=== PATIENT | female | born 1995 | race Caucasian/White ===

== ENCOUNTER 2018-09-22 22:27 | Emergency (ER) | payer OTHER ==
--- NOTE | 2018-09-23 01:51 | ER Document Report ---
ED Medical Screen (RME) - General Chief Complaint: Rectal Bleeding Stated Complaint: POSSIBLE BLEEDING Time Seen by Provider: 09/23/18 01:49 Mode of Arrival: Ambulatory Information source: Patient Notes: 22-year-old female presents to ED for complaint of rectal bleeding. She states about 10:00 tonight she went to the shower and noticed bleeding status.. She states she has a history of hemorrhoids and does not know if she is got a new hemorrhoid is bleeding. Patient states she has a Nexplanon so she knows she is not . She does not know when her last menstrual cycle was because it is irregular. Patient is alert oriented respirations regular and unlabored speaking in full sentences. I have greeted and performed a rapid initial assessment of this patient. A comprehensive ED assessment and evaluation of the patient, analysis of test results and completion of medical decision making process will be conducted by an additional ED providers. Dictation of this chart was performed using voice recognition software; therefore, there may be some unintended grammatical errors. TRAVEL OUTSIDE OF THE [place] IN LAST 30 DAYS: No Physical Exam - Vital signs Vitals: Temp Pulse Resp BP Pulse Ox 98.6 F 81 18 137/86 H 100 09/22/18 23:18 09/22/18 23:18 09/22/18 23:18 09/22/18 23:18 09/22/18 23:18 Course - Vital Signs Vital signs: Temp Pulse Resp BP Pulse Ox 98.6 F 81 18 137/86 H 100 09/22/18 23:18 09/22/18 23:18 09/22/18 23:18 09/22/18 23:18 09/22/18 23:18
[2018-09-23] MEDS ORDERED: ACETAMINOPHEN 325 MG TABLET PO ONE (01:58)
[2018-09-23 03:04] LABS: ABSOLUTE BASOPHILS # (AUTO) 0.1 10^3/uL (0.0-0.2); ABSOLUTE EOSINOPHILS # (AUTO) 0.1 10^3/uL (0.0-0.6); ABSOLUTE LYMPHOCYTES (AUTO) 2.8 10^3/uL (0.5-4.7); ABSOLUTE MONOCYTES (AUTO) 0.7 10^3/uL (0.1-1.4); ABSOLUTE NEUT (AUTO) 4.9 10^3/uL (1.7-8.2); BASOPHILS % (AUTO) 1.1 % (0-2); HEMATOCRIT 42.8 % (36.0-47.0); HEMOGLOBIN 14.9 g/dL (12.0-15.5); LYMPHOCYTES % (AUTO) 32.4 % (13-45); MEAN CORPUSCULAR HEMOGLOBIN 32.5 pg (27.0-33.4); MEAN CORPUSCULAR HGB CONC 34.9 g/dL (32.0-36.0); MEAN CORPUSCULAR VOLUME 93 fl (80-97); MONOCYTES % (AUTO) 8.4 % (3-13); PLATELET COUNT 374 10^3/uL (150-450); RED BLOOD COUNT 4.59 10^6/uL (3.72-5.28); RED CELL DISTRIBUTION WIDTH 13.1 % (11.5-14.0); SEGMENTED NEUTROPHILS % (AUTO) 57.1 % (42-78); TOTAL CELLS COUNTED % (AUTO) 100 %; WHITE BLOOD COUNT 8.6 10^3/uL (4.0-10.5)
[2018-09-23 03:27] LABS: ALANINE AMINOTRANSFERASE 27 U/L (9-52); ALBUMIN 4.9 g/dL (3.5-5.0); ALKALINE PHOSPHATASE 83 U/L (38-126); ANION GAP 12 (5-19); ASPARTATE AMINO TRANSFERASE 33 U/L (14-36); BILIRUBIN,DIRECT 0.2 mg/dL (0.0-0.4); BILIRUBIN,TOTAL 0.4 mg/dL (0.2-1.3); BLOOD UREA NITROGEN 18 mg/dL (7-20); CALCIUM 9.9 mg/dL (8.4-10.2); CARBON DIOXIDE 25 mmol/L (22-30); CHLORIDE 102 mmol/L (98-107); GLUCOSE 85 mg/dL (75-110); POTASSIUM 4.3 mmol/L (3.6-5.0); SODIUM 139.3 mmol/L (137-145); TOTAL PROTEIN 7.6 g/dL (6.3-8.2)
--- NOTE | 2018-09-23 04:00 | ER Document Report ---
ED GI Bleed / Rectal Pain - General Chief Complaint: Rectal Bleeding Stated Complaint: POSSIBLE BLEEDING Time Seen by Provider: 09/23/18 01:49 Mode of Arrival: Ambulatory TRAVEL OUTSIDE OF THE [place] IN LAST 30 DAYS: No - HPI Notes: Patient is a 22-year-old female that presents to the emergency department for chief complaint of rectal bleeding. Patient states that after trying to have a bowel movement this evening she began having bright red rectal bleeding. She states she is having pain at her anus. She does report a history of hemorrhoids in the past but states this was more bleeding than she has seen previously. Currently she states she does not feel like she is bleeding. She denies any associated palpitations, lightheadedness, shortness of breath and near syncope. She is not on any blood thinning medications. Patient denies history of anemia in the past. Past Medical History: Anxiety, depression Past Surgical History: Negative Social History: Denies drugs alcohol and tobacco Family History: Reviewed and noncontributory for presenting illness Allergies: Reviewed, see documented allergy list. REVIEW OF SYSTEMS: CONSTITUTIONAL : No fever No chills No diaphoresis No recent illness EENT: No vision changes No congestion No sore throat CARDIOVASCULAR: No chest pain No palpitations RESPIRATORY: No shortness of breath No cough No difficulty breathing GASTROINTESTINAL: No abdominal pain No nausea No vomiting No diarrhea GENITOURINARY: Rectal bleeding No dysuria No hematuria No difficulty urinating MUSCULOSKELETAL: No back pain No leg pain No arm pain SKIN: No rashes No lesions LYMPHATIC: No swollen, enlarged glands. NEUROLOGICAL: No lightheadedness No headache No weakness No paresthesias PSYCHIATRIC: No anxiety No depression PHYSICAL EXAMINATION: Vital signs reviewed, nursing noted reviewed. GENERAL: Well-appearing, well-nourished and in no acute distress. HEAD: Atraumatic, normocephalic. EYES: Eyes appear normal, extraocular movements intact, sclera anicteric, conjunctiva are normal. ENT: nares patent, oropharynx clear without exudates. Moist mucous membranes. NECK: Normal range of motion, supple without lymphadenopathy LUNGS: Breath sounds clear to auscultation bilaterally and equal. No wheezes rales or rhonchi. HEART: Regular rate and rhythm without murmurs ABDOMEN: Soft, nontender, normoactive bowel sounds. No rebound, guarding, or rigidity. No masses appreciated. EXTREMITIES: Nontender, good range of motion, no pitting or edema. : Small nonthrombosed nonbleeding external hemorrhoid. Trace bright red bleeding from anal fissure with tenderness to palpation. Normal rectal tone. NEUROLOGICAL: No focal neurological deficits. Moves all extremities sponta neously Motor and sensory grossly intact on exam. PSYCH: Anxious, normal affect. SKIN: Warm, Dry, normal turgor, no rashes or lesions noted on exposed skin Past Medical History - General Information source: Patient - Social History Smoking Status: Never Smoker Family History: Reviewed & Not Pertinent Physical Exam - Vital signs Vitals: Temp Pulse Resp BP Pulse Ox 98.6 F 81 18 137/86 H 100 09/22/18 23:18 09/22/18 23:18 09/22/18 23:18 09/22/18 23:18 09/22/18 23:18 Course - Re-evaluation Re-evalutation: 09/23/18 04:00 Vitals reviewed. Nursing notes reviewed. Patient is hemodynamically stable. Rectal exam shows small nonbleeding nonthrombosed external hemorrhoid as well as an anal fissure which does have some trace bright red blood. Her hemoglobin is stable. The remainder of the lab work ordered in triage is unremarkable. Patient was counseled on management of her anal fissure. She will be referred to PCP for follow-up. - Vital Signs Vital signs: Temp Pulse Resp BP Pulse Ox 98.6 F 81 18 137/86 H 100 09/22/18 23:18 09/22/18 23:18 09/22/18 23:18 09/22/18 23:18 09/22/18 23:18 - Laboratory Result Diagrams: 09/23/18 02:37 09/23/18 02:37 Discharge - Discharge Clinical Impression: Rectal fissure, External hemorrhoid Condition: Stable Disposition: HOME, SELF-CARE Instructions: Hemorrhoids ([facility]), Anal Fissure ([facility]) Additional Instructions: Please return to the emergency department if you have any worsening, or concern of your symptoms. Please return to the emergency department if you develop chest pain, difficulty breathing, severe abdominal pain, or ongoing vomiting. Please follow-up with your primary care physician in 2-3 days and any other recommended physicians. If prescribed, take all medications as directed. If you have any questions or concerns do not hesitate to return the emergency de partment for evaluation. Take Colace or MiraLAX at home daily to keep your bowel movements soft Referrals: [facility] [Provider Group] - Follow up as needed
[2018-09-23 04:14] VITALS: BP 133/95
== END 2018-09-23 04:18 | disposition home or self-care (01) ==
LOC: ER 22:27
DX: K60.2 Anal fissure, unspecified (principal); K64.4 Residual hemorrhoidal skin tags
CPT/HCPCS: 36415; 80053; 84703; 85025; 99283